=== PATIENT | male | born 1990 | race Caucasian/White ===

== ENCOUNTER 2019-08-03 16:10 | Emergency (ER) | payer OTHER ==
[2019-08-03 16:21] VITALS: BP 142/87; PULSE 110; RESP 20; TEMP 99
[2019-08-03] MEDS ORDERED: DIPH,PERTUS(ACELL)TETVAC-LF 0.5 ML VIAL IM ONE (17:19)
[2019-08-03] MEDS ORDERED: LIDOCAINE 1% INJ 10MG/ML (20 ML MDV) SQ ONE (17:41)
--- NOTE | 2019-08-03 17:41 | ED ---
Wound/Laceration HPI - General Chief Complaint: Wound/Laceration Stated Complaint: [facility] - head injury Time Seen by Provider: 08/03/19 17:03 Source: patient Mode of arrival: ambulatory Limitations: no limitations - History of Present Illness Initial Comments: Patient is a 29-year-old male presenting to the emergency department complaints of a laceration to his forehead that happened prior to arrival. 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 Patient denies LOC. Patient does admit to mild headache where he was hit. Patient denies dizziness, lightheadedness, nausea, vomiting. Patient has no other complaints at this time. Patient does not remember his last tetanus vaccine. Patient denies fever or chills. Upon arrival to ER, vital signs are stable, bleeding is minimal at this time. - Related Data Allergies Allergy/AdvReac Type Severity Reaction Status Date / Time No Known Allergies Allergy Verified 08/03/19 16:21 Review of Systems ROS Statement: Those systems with pertinent positive or pertinent negative responses have been documented in the HPI. ROS Other: All systems not noted in ROS Statement are negative. Past Medical History Past Medical History: No Reported History History of Any Multi-Drug Resistant Organisms: None Reported Past Surgical History: Tonsillectomy Past Psychological History: Anxiety Smoking Status: Never smoker Past Alcohol Use History: Daily Past Drug Use History: None Reported General Exam - General Exam Comments Initial Comments: GENERAL: Well-appearing, well-nourished and in no acute distress. HEAD: Atraumatic, normocephalic. Small hematoma present in the right forehead. EYES: Pupils equal round and reactive to light, extraocular movements intact, sclera anicteric, conjunctiva are normal. ENT: TMs normal, nares patent, oropharynx clear without exudates. Moist mucous membranes. NECK: Normal range of motion, supple without lymphadenopathy or JVD. LUNGS: Breath sounds clear to auscultation bilaterally and equal. No wheezes rales or rhonchi. HEART: Regular rate and rhythm without murmurs, rubs or gallops. ABDOMEN: Soft, nontender, normoactive bowel sounds. No guarding, no rebound. No masses appreciated. : Deferred EXTREMITIES: Normal range of motion, no pitting or edema. No clubbing or cyanosis. NEUROLOGICAL: Cranial nerves II through XII grossly intact. Normal speech, normal gait. PSYCH: Normal mood, normal affect. SKIN: Warm, Dry, normal turgor,. Patient has 2 cm laceration to the middle forehead just superior to right eyebrow. Bleeding is minimal at this time. Limitations: no limitations Course Vital Signs 08/03/19 16:17 Temperature 99.0 F Pulse Rate 110 H Respiratory 20 Rate Blood Pressure 142/87 O2 Sat by Pulse 100 Oximetry Procedures - Laceration Laceration #1 Consent Obtained: verbal consent Indication: laceration Site: face (Right forehead just superior to the inside right eyebrow) Size (cm): 2 Description: linear Depth: simple, single layer Anesthetic Used: lidocaine 1% Anesthesia Technique: local infiltration Amount (mls): 3 Pre-repair: irrigated extensively Type of Sutures: nylon Size of Sutures: 5-0 Number of Sutures: 5 Technique: simple, interrupted Patient Tolerated Procedure: well Medical Decision Making - Medical Decision Making Patient is a 29-year-old male presenting with a 2cm laceration to his right forehead from a golf ball. Patient does have a mild hematoma to the right forehead. No neuro deficits. Wound was irrigated and closed with 5, 5-0 sutures. Patient tolerated procedure well. Sutures will be removed in 7-10 days. Patient will use ice and Tylenol Motrin for pain relief. Patient is stable for discharge at this time and he is in agreement with this plan of care. Return parameters were discussed with the patient and he verbalized understand ing. Disposition Clinical Impression: Laceration of forehead without complication, Contusion of forehead Disposition: HOME SELF-CARE Condition: Stable Instructions (If sedation given, give patient instructions): Care For Your Stitches (ED), Laceration (ED) Additional Instructions: Please return to the Emergency Department if symptoms worsen or any other concerns. Sutures need to be removed in 7-10 days. Use ice, Tylenol and/or Motrin for pain relief. Is patient prescribed a controlled substance at d/c from ED?: No Referrals: None,Stated [Primary Care Provider] - 1-2 days
== END 2019-08-03 18:35 | disposition home or self-care (01) ==
LOC: EC 16:10
DX: S01.81XA Laceration without foreign body of other part of head, initial encounter (principal); Z23 Encounter for immunization; W21.04XA Struck by golf ball, initial encounter; Y92.39 Other specified sports and athletic area as the place of occurrence of the external cause; Y99.0 Civilian activity done for income or pay
CPT/HCPCS: 90715; 99282; 90471; 12011; J2001

== ENCOUNTER → 2019-08-05 | Outpatient (CLI) | payer OTHER ==
--- NOTE | 2019-08-05 14:58 | CT ---
EXAMINATION TYPE: CT brain wo con DATE OF EXAM: 08/05/2019 COMPARISON: None. HISTORY: Contusion to frontal portion of head, hit in head by golf ball. CT DLP: 1133.40 mGycm. Automated Exposure Control for Dose Reduction was Utilized. TECHNIQUE: CT scan of the head is performed without contrast. FINDINGS: There is no acute intracranial hemorrhage, mass effect, or midline shift identified. The ventricles and sulci are within normal limits in size. Casey-white matter differentiation is maintain ed. Mild mucosal thickening involving inferior aspect bilateral maxillary sinuses. Patchy opacificati on ethmoid sinuses bilaterally, right greater than left. IMPRESSION: No acute intracranial hemorrhage or midline shift is seen.
== END | disposition home or self-care (01) ==
LOC: RADCTMAIN 14:32
PROVIDERS: ATTEND Emergency Medicine
DX: S00.83XA Contusion of other part of head, initial encounter (principal); G44.319 Acute post-traumatic headache, not intractable; H53.8 Other visual disturbances
CPT/HCPCS: 70450